=== PATIENT | male | born 1995 | race Caucasian/White ===

== ENCOUNTER 2016-07-09 04:21 | Emergency (ER) | payer BC, OTHER ==
[2016-07-09] MEDS ORDERED: NS 0.9% 1000 ML* 1,000 ML IV ONE (05:04)
[2016-07-09] MEDS ORDERED: Ondansetron INJ* 2 MG/ML VIAL IV ONE (05:04)
--- NOTE | 2016-07-09 07:03 | ED ---
Sharan Oquendo SooYoung, scribed for Kevin Glass MD on 07/09/16 at 0517 . Substance Abuse/Use - HPI Summary HPI Summary: LEVEL 5 CAVEAT: HPI LIMITED DUE TO PT CONDITION: INTOXICATED, UNRESPONSIVE. A 20 y/o M presents to ED BIBA after excess EtOH consumption and smoked marijuana. Pt has vomited. - History Of Current Complaint Chief Complaint: EDSubstanceAbuse Stated Complaint: ETOH Time Seen by Provider: 07/09/16 05:03 Hx Obtained From: Patient, EMS PMH/Surg Hx/FS Hx/Imm Hx Previously Healthy: No - LEVEL 5 CAVEAT: PMH LIMITED DUE TO PT CONDITION: INTOXICATED, UNRESPONSIVE. - Immunization History Date of Tetanus Vaccine: UTD Date of Influenza Vaccine: fall 2105 Infectious Disease History: Denies: Traveled Outside the [place] in Last 30 Days - Family History Family History: LEVEL 5 CAVEAT: FHx LIMITED DUE TO PT CONDITION: INTOXICATED, UNRESPONSIVE. - Social History Occupation: Student Alcohol Use: Weekly Alcohol Amount: 4-5 Hx Substance Use: Yes Substance Use Type: Reports: Marijuana Substance Use Comment - Amount & Last Used: good amount Smoking Status (MU): Never Smoked Tobacco Review of Systems - ROS Summary Review of Systems Summary: LEVEL 5 CAVEAT: ROS LIMITED DUE TO PT CONDITION: INTOXICATED, UNRESPONSIVE. All Other Systems Reviewed And Are Negative: Yes Physical Exam - Summary Physical Exam Summary: LEVEL 5 CAVEAT: PE LIMITED DUE TO PT CONDITION: INTOXICATED, UNRESPONSIVE. General: Well appearing, no distress Cardiovascular: Skin is well perfused; TACHY Pulmonary: No respiratory distress, no tachypnea Abdomen: Non-distended Skin: Warm, pink, dry Psych: Normal affect Neuro: DROWSY Triage Information Reviewed: Yes Vital Signs On Initial Exam: Initial Vitals Temp Pulse Resp BP Pulse Ox 97.6 F 106 16 112/61 97 07/09/16 04:23 07/09/16 04:23 07/09/16 04:23 07/09/16 04:23 07/09/16 04:23 Vital Signs Reviewed: Yes - [place] Coma Scale Coma Scale Total: 15 Diagnostics - Vital Signs Vital Signs Temp Pulse Resp BP Pulse Ox 07/09/16 04:23 97.6 F 106 16 112/61 97 - Laboratory Lab Results: Lab Results 07/09/16 Range/Units 04:45 Serum Alcohol 185 H (<10) mg/dL Lab Statement: Any lab studies that have been ordered have been reviewed, and results considered in the medical decision making process. Course/Dx - Course Course Of Treatment: iv FLUIDS/ANTIEMETICS. Signed out to Dr. Neves pending sobriety/sober ride. - Diagnoses Provider Diagnoses: Dehydration, Alcohol intoxication Discharge - Discharge Plan Condition: Good Disposition: OTHER Discharge Disposition Comment: signed out The documentation as recorded by the Sharan blackburn SooYoung accurately reflects the service I personally performed and the decisions made by , Kevin Glass MD.
[2016-07-09 10:47] VITALS: BP 100/49
== END 2016-07-09 10:46 | disposition home or self-care (01) ==
LOC: ED 04:21
DX: F10.29 Alcohol dependence with unspecified alcohol-induced disorder (principal); E86.0 Dehydration
CPT/HCPCS: 36415; 80320; 96374; 96375; 99284; G0480; J2405